=== PATIENT | female | born 1990 | race Hispanic/Latino ===

== ENCOUNTER → 2016-08-29 | Outpatient (REF) | payer OTHER | LOC: M LAB REF 17:02 | PROVIDERS: ATTEND Advanced Practice Midwife | DX: Z34.82 Encounter for supervision of other normal pregnancy, second trimester (principal) ==

== ENCOUNTER → 2016-09-27 | Outpatient (CLI) | payer OTHER ==
--- NOTE | 2016-09-27 15:05 | REP ---
Obstetric sonography: History: Supervision of for anatomy. Findings: Scanning through the gravid uterus demonstrates a viable single intrauterine gestation in a cephalic lie. motion is observed and heart rate is recorded at 144 beats per minute. An anterior grade 0 placenta is seen without evidence of previa or abruption. Amniotic fluid is subjectively normal. Closed cervical length is 5.3 cm. No extrauterine abnormality is observed. There has been appropriate interval growth since the prior study. spine is less than optimally seen. No anomaly is seen. The following anatomic structures are identified and felt to be sonographically unremarkable: cranium, choroid plexus, cavum, cerebellum and posterior fossa, face and profile, lungs, four-chamber heart with left and right ventricular outflow tract views, diaphragm, left-sided stomach, abdominal wall cord insertion, three-vessel umbilical cord, kidneys and bladder, upper and lower extremities. Biometry chart: BPD 4.5 cm = 19 weeks 4 days HC 16.6 cm = 19 weeks 2 days AC 15.8 cm = 21 weeks 0 days FL 3.0 cm = 19 weeks 2 days HL 3.0 cm = 19 weeks 6 days CD 1.9 cm = 18 weeks 3 days HC/AC ratio normal 1.05. Cephalic index normal 0.75. Estimated weight 330 grams, 0 pounds 11 ounces, 60th percentile for 19 weeks 5 days. Impression: Viable single intrauterine gestation at 19-week 6 days by today's composite sonographic criteria. Expected gestational age estimate based on prior sonography is 19 weeks 5 days. HERACLIO by prior sonography February 16, 2017. spine less than optimally seen. anatomic survey otherwise complete. Signed by Adam Ba MD 09/27/2016 04:34 P
== END ==
LOC: M RAD 09:37
PROVIDERS: ATTEND Advanced Practice Midwife
DX: Z34.82 Encounter for supervision of other normal pregnancy, second trimester (principal); Z3A.19 19 weeks gestation of pregnancy

== ENCOUNTER → 2016-10-30 | Outpatient (CLI) | payer OTHER ==
--- NOTE | 2016-10-31 06:52 | REP ---
Clinical: Anatomical evaluation. Comparison: 09/27/2016 . Findings: Examination demonstrates a single live intrauterine in breech presentation. motion is identified by technologist. Placenta is noted anteriorly and grade zero without evidence for placenta previa or abruption. Amniotic fluid volume is normal. Cervix appears closed. No evidence for nuchal cord. Gestational age by LMP 24 weeks 3 days with HERACLIO 02/16/2017 . Gestational age by current measurements 24 weeks 5 days with HERACLIO 02/14/2017 . FHR equals 140 beats per minute. Estimated weight 697 grams ( 45th percentile). Anatomical assessment demonstrates normal structures including cranium, choroid plexus, cavum, cerebellum/posterior fossa, facial features, lungs, ventricular outflow tracts, diaphragm, stomach, cord insertion/three-vessel cord, kidneys/bladder, and extremities. Impression: Single live intrauterine in breech presentation demonstrating appropriate interval growth. Incomplete evaluation of the spine again noted. Remainder of the anatomical assessment is complete and normal. Signed by Vitaliy Salomon MD 10/31/2016 06:44 A
== END ==
LOC: M RAD 11:49
PROVIDERS: ATTEND Advanced Practice Midwife
DX: Z34.82 Encounter for supervision of other normal pregnancy, second trimester (principal)

== ENCOUNTER → 2016-11-28 | Outpatient (CLI) | payer OTHER ==
[2016-11-28 14:06] LABS: BASO % 0.1 % (0.0-1.0); EOS # 0.1 K/mm3 (0.0-0.50); LARGE UNSTAINED CELL # 0.1 K/mm3 (0.0-0.4); LARGE UNSTAINED CELL % 1.3 % (0.0-4.0); LYMPH # 1.7 K/mm3 (1.5-6.5); LYMPH % 20.6 % (24.0-44.0); MEAN CORPUSCULAR HEMOGLOBIN 33.5 pg (27.0-33.0); MEAN CORPUSCULAR HGB CONC 33.9 g/dl (32.0-36.5); MEAN CORPUSCULAR VOLUME 98.8 fl (80.0-96.0); MONO # 0.4 K/mm3 (0.0-0.8); MONO % 5.1 % (0.0-5.0); NEUTROPHILS # 5.4 K/mm3 (1.8-7.7); NEUTROPHILS % 71.8 % (36.0-66.0); PLATELET COUNT, AUTOMATED 240 k/mm3 (150-450); RED CELL DISTRIBUTION WIDTH 12.9 % (11.5-14.5); WHITE BLOOD COUNT 7.5 K/mm3 (4.0-10.0)
== END ==
LOC: M SMT 08:50
PROVIDERS: ATTEND Advanced Practice Midwife
DX: Z34.83 Encounter for supervision of other normal pregnancy, third trimester (principal)

== ENCOUNTER → 2016-12-14 | Outpatient (CLI) | payer OTHER ==
--- NOTE | 2016-12-14 11:42 | REP ---
OB ULTRASOUND: Real-time sonographic evaluation of the gravid uterus is performed utilizing transabdominal technique. There is a single living intrauterine gestation with an estimated gestational age 30 weeks 6 days with EDC 02/16/2017. Today's measurements indicate appropriate growth. Biometry and Growth: BPD 77 mm = 31 weeks 0 days, 53rd percentile HC 288 mm = 31 weeks 4 days, 62nd percentile AC 271 mm = 31 weeks 1 day, 55th percentile FL 59 mm = 30 weeks 5 days, 47th percentile HC/AC ratio 1.06 within normal range. Estimated weight 1688 grams, 47th percentile. SEEN/GROSSLY UNREMARKABLE Lateral ventricles Yes Posterior fossa No Upper lip Yes Four-chamber heart Yes LVOT No RVOT No Stomach Yes Cord insertion Yes Three vessel cord Yes Kidneys Yes Bladder Yes Spine Yes Cervical length: The cervix is not well visualized. heart rate: 139 beats per minute. position: Vertex. Placenta: Anterior and grade 1 with no previa or abruption. Amniotic fluid: Within normal limits, KEEGAN 12.1 within normal range of 8.8 to 23.7. S/D ratio: 3.07 within normal range. RI: 0.67 within normal range. Signed by Mariano Sims MD 12/14/2016 04:38 P
== END ==
LOC: M RAD 10:10
PROVIDERS: ATTEND Advanced Practice Midwife
DX: Z36 Encounter for antenatal screening of mother (principal); Z3A.30 30 weeks gestation of pregnancy

== ENCOUNTER → 2017-01-16 | Outpatient (REF) | payer OTHER | LOC: M LAB REF 12:57 | PROVIDERS: ATTEND Specialist | DX: Z34.83 Encounter for supervision of other normal pregnancy, third trimester (principal) ==

== ENCOUNTER 2017-02-18 23:13 | Inpatient (IN) | payer OTHER ==
[~2017-02-18] VITALS: Ht 165.1 cm; Wt 95.0 kg
[2017-02-18 23:28] VITALS: BP 128/78
[2017-02-19] VITALS (30 sets, daily range): BP systolic 98–139; BP diastolic 56–85
[2017-02-19] MEDS ORDERED: LACTATED RINGER'S 1000 ML IV STA (01:53)
[2017-02-19] MEDS ORDERED: LR 1,000 ML IV SCH ×2 (01:53→07:33)
[2017-02-19] MEDS ORDERED: CLIN150C14 PO (02:06)
[2017-02-19 02:10] LABS: MEAN CORPUSCULAR HEMOGLOBIN 31.8 pg (27.0-33.0); MEAN CORPUSCULAR HGB CONC 32.6 g/dl (32.0-36.5); MEAN CORPUSCULAR VOLUME 97.6 fl (80.0-96.0); RED CELL DISTRIBUTION WIDTH 13.5 % (11.5-14.5); WHITE BLOOD COUNT 8.6 K/mm3 (4.0-10.0)
[2017-02-19] MEDS ORDERED: OXYTOCIN DRIP 30 UNITS in APPROPRIATE DILUENT 1 EA IV SCH ×2 (02:30→07:33)
[2017-02-19] MEDS ORDERED: fentaNYL 100 MCG/2 ML INJECTION (J3010) As Ordered ONE (02:50)
[2017-02-19] MEDS ORDERED: FENTANYL 2MCG/ML ROPIVACAINE 0.2% IN 0.9% NACL 200ML IVBAG As Ordered ONE (02:51)
[2017-02-19] MEDS ORDERED: FENTANYL/ROPIVACAINE/NACL BAG 200 ML EPIDURAL SCH (04:00)
[2017-02-19] MEDS ORDERED: ePHEDrine SULFATE 25 MG/5 ML(5MG/ML) SYRINGE IV PRN (04:00)
[2017-02-19] MEDS ORDERED: NALOXONE INJ 0.4 MG/1 ML VIAL (J2310) IV PRN (04:00)
[2017-02-19] MEDS ORDERED: EPIDURAL/PCA KEYS XX PRN (04:00)
[2017-02-19] MEDS ORDERED: ONDANSETRON 4MG/2ML VIAL (J2405) IV PRN ×2 (04:00→07:45)
[2017-02-19] MEDS ORDERED: REFRIGERATOR IV KEYS XX PRN (04:00)
[2017-02-19] MEDS ORDERED: EPIDURAL COMMENT XX SCH (04:00)
[2017-02-19] MEDS ORDERED: LACTATED RINGER'S 1000 ML IV PRN (04:00)
[2017-02-19] MEDS ORDERED: diphenhydrAMINE INJ 50MG/ML VIAL (J1200) IV PRN (04:00)
[2017-02-19] MEDS ORDERED: ACETAMINOPHEN 500 MG TAB PO PRN (07:45)
[2017-02-19] MEDS ORDERED: DIBUCAINE 1% OINTMENT 30GM TOP PRN (07:45)
[2017-02-19] MEDS ORDERED: DOCUSATE SODIUM 100 MG CAP PO PRN (07:45)
[2017-02-19] MEDS ORDERED: MEASLES,MUMPS,RUBELLA VACCINE INJ (MMR-II) (90707) SC SCH (07:45)
[2017-02-19] MEDS ORDERED: RHOGAM 300 MCG (1500 IU) INJ (J2790) IM SCH (07:45)
[2017-02-19] MEDS ORDERED: PROMETHAZINE 25 MG TAB PO PRN (07:45)
[2017-02-19] MEDS: PRENATAL VITAMINS CHEWABLE TABLET PO SCH (09:00)
[2017-02-19] MEDS: IBUPROFEN 800 MG TAB PO PRN (17:54)
[2017-02-20 05:50] VITALS: BP 150/68
[2017-02-20 06:32] VITALS: BP 116/72
[2017-02-20] MEDS: PRENATAL VITAMINS CHEWABLE TABLET PO SCH (08:04)
[2017-02-20] MEDS: IBUPROFEN 800 MG TAB PO PRN ×2 (09:56→21:01)
[2017-02-20 17:55] VITALS: BP 123/76
[2017-02-21 05:41] VITALS: BP 122/66
[2017-02-21] MEDS: PRENATAL VITAMINS CHEWABLE TABLET PO SCH (07:37)
[2017-02-21] MEDS ORDERED: ACET50TA PO (09:01)
[2017-02-21] MEDS ORDERED: PRENTAB9 PO (09:01)
[2017-02-21] MEDS ORDERED: IBUP-1114 PO (09:01)
== END 2017-02-21 10:40 | disposition home or self-care (01) | DRG 560 ==
LOC: M LDO 23:13 → M LDI 02-19 01:53 → M OBS 02-19 11:00
PROVIDERS: ADMIT Obstetrics & Gynecology; ATTEND Obstetrics & Gynecology
PROC: 10E0XZZ Delivery of Products of Conception, External Approach (ICD-10-PCS; principal; 2017-02-19)
PROC: 10907ZC Drainage of Amniotic Fluid, Therapeutic from Products of Conception, Via Natural or Artificial Opening (ICD-10-PCS; 2017-02-19)
DX: O48.0 Post-term pregnancy (principal); O69.2XX0 Labor and delivery complicated by other cord entanglement, with compression, not applicable or unspecified; Z37.0 Single live birth; Z3A.40 40 weeks gestation of pregnancy

== ENCOUNTER → 2020-04-18 | Outpatient (CLI) | payer OTHER ==
[~2020-04-18] MED LIST: CLIN150C14 PO; IBUP-1114 PO; MAPA500T2 PO; PRENTAB9 PO
[2020-04-18 15:55] LABS: BASO % 0.2 % (0.0-1.0); EOS % 0.3 % (0.0-3.0); HEMATOCRIT 40.3 % (36.0-47.0); HEMOGLOBIN 13.8 g/dl (12.0-15.5); LYMPH # 2.4 10^3/uL (1.5-5.0); LYMPH % 25.3 % (24.0-44.0); MEAN CORPUSCULAR HEMOGLOBIN 32.6 pg (27.0-33.0); MEAN CORPUSCULAR HGB CONC 34.2 g/dl (32.0-36.5); MEAN CORPUSCULAR VOLUME 95.3 fl (80.0-96.0); MONO # 0.6 10^3/uL (0.0-0.8); MONO % 6.9 % (0.0-5.0); NEUTROPHILS # 6.2 10^3/uL (1.5-8.5); NEUTROPHILS % 66.9 % (36.0-66.0); PLATELET COUNT, AUTOMATED 298 10^3/uL (150-450); RED BLOOD COUNT 4.23 10^6/uL (4.00-5.40); WHITE BLOOD COUNT 9.3 10^3/uL (4.0-10.0)
[2020-04-18 16:41] LABS: HEPATITIS C VIRUS ABY INDEX 0.3 INDEX (<0.8); HIV 1&2 SCREEN CENTAUR NEGATIVE (NEGATIVE)
[2020-04-18 17:59] LABS: CHLAMYDIA DNA AMPLIFICATION NEGATIVE (NEGATIVE); GC DNA AMPLIFICATION NEGATIVE (NEGATIVE)
== END ==
LOC: M PLALAB 12:03
PROVIDERS: ATTEND Advanced Practice Midwife
DX: Z34.81 Encounter for supervision of other normal pregnancy, first trimester (principal); Z3A.00 Weeks of gestation of pregnancy not specified

== ENCOUNTER → 2020-06-13 | Outpatient (CLI) | payer OTHER ==
--- NOTE | 2020-06-13 14:34 | REP ---
INDICATION: ANATOMY. Supervision of COMPARISON: None. TECHNIQUE: Transabdominal scanning. FINDINGS: Scanning through the gravid uterus demonstrates a viable single intrauterine gestation in transverse, head to the maternal right lie. motion is observed and heart rate is recorded at 134 beats per minute. A anterior placenta is seen, grade 0, without evidence of placenta previa. Amniotic fluid is subjectively normal. Closed cervical length is measured at 3.3 cm transabdominally. No extrauterine abnormality is observed. nose and lips, kidneys, and spine are less than optimally seen due to position.. The following anatomic structures are identified felt to be unremarkable: cranium, cavum septum pellucidum, falx, cerebral ventricles, choroid plexus and cerebellum, four-chamber heart with left and right ventricular outflow tract views, diaphragm, left-sided stomach, urinary bladder, upper and lower extremities, three-vessel cord. Biometry chart: BPD 4.4 cm, 19 weeks 2 days Head circumference 16.7 cm, 19 weeks 2 days Abdominal circumference 13.9 cm, 19 weeks 2 days Femur length 3.0 cm, 19 weeks 2 days Humeral length 2.9 cm, 19 weeks 3 days HC AC ratio normal 1.20 Cephalic index normal 0.72 Estimated weight 285 g, 0 lb 10 oz, 40th percentile for 19 weeks 3 days IMPRESSION: Viable single intrauterine gestation at 19 weeks 2 days by today's composite sonographic criteria. HERACLIO by today's sonography November 05, 2020. No complication identified. anatomic survey is less than complete regarding visualization of spine, kidneys, nose and lips. <Electronically signed by Felipe Ba > 06/13/20 [id number]
== END ==
LOC: M WHC 09:28
PROVIDERS: ATTEND Advanced Practice Midwife
DX: Z36.3 Encounter for antenatal screening for malformations (principal); Z3A.19 19 weeks gestation of pregnancy

== ENCOUNTER → 2020-06-22 | Outpatient (CLI) | payer OTHER ==
--- NOTE | 2020-06-22 12:01 | REP ---
INDICATION: F/U ANATOMY- SPINE/KIDNEYS/NOSE/LIPS. COMPARISON: 06/13/2020 TECHNIQUE: Real-time sonographic evaluation of the gravid uterus performed. FINDINGS: Estimated gestational age is20 weeks 5 days, EDC 11/04/2020. Today's measurements indicate appropriate growth. Presentation: Cephalic Placenta anterior, grade 1, without evidence of placenta previa. heart rate is recorded at 142 beats per minute. Amniotic fluid is subjectively normal. Closed cervical length is measured at 3.3 cm. Biometry chart: BPD: 50 mm, 21 weeks 0 days, 57th percentile. HC: 187 mm, 21 weeks 0 days, 60th percentile AC: 156 mm, 20 weeks 5 days, 51st percentile Femur length: 35 mm, 20 weeks 6 days, 55th percentile HC to AC ratio: 1.20, normal range 1.06-1.24. Estimated weight: 381g, 53rd percentile. anatomy: Cranium: Grossly normal Nose/lips/profile: Grossly normal Four chamber heart: Grossly normal Right ventricular outflow tract: Grossly normal Left ventricular outflow tract: Grossly normal Left-sided stomach: Grossly normal Kidneys: Grossly normal Bladder: Grossly normal Cord Insertion: Grossly normal 3 vessel cord: Grossly normal Spine: Grossly normal IMPRESSION: Viable single intrauterine gestation as above. <Electronically signed by Mariano Sims > 06/22/20 [id number]
== END ==
LOC: M WHC 08:56
PROVIDERS: ATTEND Specialist
DX: Z34.82 Encounter for supervision of other normal pregnancy, second trimester (principal)

== ENCOUNTER → 2020-08-10 | Outpatient (REF) | payer OTHER ==
[2020-08-10 13:44] LABS: HEMATOCRIT 37.9 % (36.0-47.0); HEMOGLOBIN 12.4 g/dl (12.0-15.5); MEAN CORPUSCULAR HEMOGLOBIN 31.7 pg (27.0-33.0); MEAN CORPUSCULAR HGB CONC 32.7 g/dl (32.0-36.5); MEAN CORPUSCULAR VOLUME 96.9 fl (80.0-96.0); PLATELET COUNT, AUTOMATED 272 10^3/uL (150-450); RED BLOOD COUNT 3.91 10^6/uL (4.00-5.40); WHITE BLOOD COUNT 9.2 10^3/uL (4.0-10.0)
== END ==
LOC: M PLALAB 11:14
PROVIDERS: ATTEND Obstetrics & Gynecology
DX: Z34.82 Encounter for supervision of other normal pregnancy, second trimester (principal)

== ENCOUNTER → 2020-10-12 | Outpatient (REF) | payer OTHER ==
[~2020-10-12] MED LIST changes: -CLIN150C14 PO; +CLIN150C15 PO
== END ==
LOC: M SFHCWAGY 12:54
PROVIDERS: ATTEND Advanced Practice Midwife
DX: Z34.93 Encounter for supervision of normal pregnancy, unspecified, third trimester (principal); Z3A.36 36 weeks gestation of pregnancy

== ENCOUNTER 2020-11-04 15:40 | Inpatient (IN) | payer OTHER ==
[~2020-11-04] VITALS: Ht 165.1 cm; Wt 107.7 kg
[2020-11-04] VITALS (20 sets, daily range): BP systolic 84–161; BP diastolic 50–80
[2020-11-04] MEDS ORDERED: TUMS500C PO (15:55)
[2020-11-04] MEDS ORDERED: LACTATED RINGER'S 1000 ML IV STA (16:05)
[2020-11-04] MEDS ORDERED: LR 1,000 ML IV SCH (16:05)
--- NOTE | 2020-11-04 16:22 | HPEPDOC ---
Obstetrical History & Physical General Date of Admission Nov 04, 2020 at 16:04 Primary Care Physician: CATIE REYES CNM History of Present Illness Josselyn is a 30-year-old female who is a at 40 weeks gestation with HERACLIO of 11/04/20 based off of her LMP and consistent with her first trimester ultrasound. Her has been uncomplicated. 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 She reports some bloody show and active movement. She denies leaking of fluid. Chief Complaint: Contractions, term Information Provided By: Patient Age: 30 : 3 Term: 2 Pre-term: 0 Abortions: 0 Livin Care Care: Good Care Dating Final EDC: Nov 04, 2020 Final EDC by: LMP EGA at Admission: 40 Antepartum Course Height (inches): 65 Admission Weight (lbs.): 235 Past Medical History Past Obstetrical History #1: Past Obstetrical History: Primgravida Date of Delivery: Jul 31, 2007 Gestation: 40 Type of Delivery: Spontaneous Vaginal Del. Sex of Infant: Male (6 lbs 11 oz) Complications: No Past Obstetrical History #2: Past Obstetrical History: Multigravida Date of Delivery: Feb 19, 2017 Gestation: 40.3 Type of Delivery: Spontaneous Vaginal Del. Sex of : Male (7 lbs 6 oz) Complications: No DISCOVERY MANAGER History: No pertinent history Past Medical History Medical History overweight Surgical History: Denies/None Family History Significant Family History: No pertinent family hx Social History Marital Status: Single Family situation: Spouse/partner home Psychosocial History: No pertinent psych hx * Smoker: former Smoker Alcohol: Denies Drugs: denies Abuse Violence Screening Have you been hit/kicked/slapp: No Have you been sexually assault: No Allergies Coded Allergies: No Known Allergies (Unverified , 02/19/17) Medications Scheduled Calcium Carbonate (Tums) 200 Mg Tab.chew, 2 TAB PO PRN Physical Examination Physical Examination GENERAL: Alert and oriented times three. ABDOMEN: Gravid and non-tender to touch. FETUS: Is vertex (VTX) by sterile vaginal examination (SVE), fetus is vertex (VTX) by Mariano. LUNGS: Clear to auscultation (CTA). EXTREMITIES: Generalized edema. No clonus. Deep tendon reflexes (DTRs) + 2. Vital Signs/I&O Vital Signs Label Value Date Time Patient Temperature 98.1 degrees F 11/04/20 1558 Temperature Source Temporal 11/04/20 1558 Pulse 122 11/04/20 1558 Respiratory Rate 18 bpm 11/04/20 1558 Blood Pressure Assessment 125/76 (92) 11/04/20 1558 Source Automatic Cuff (NIBP) Pertinent Laboratoy Data Blood Type: O+ RBC Antibody Screen: Negative HIV: Negative Hepatitis B: Negative Hepatitis C: Negative Rapid Plasma Reagin: Nonreactive Rubella: Immune Chlamydia/Gonorrhea: Negative Group B Streptococcus: Negative Glucose Tolerance Test: 108 Vaginal Examination Dilation: 5 cm Effacement: 80% Station: -1 Cervical Consistency: Soft Cervical Position: Anterior Position: Vertex (occiput) Assessment Heart Rate (FHR): 130 Variability: Moderate Accelerations: Positive Decelerations: Early Tocometer Contractions: Yes Frequency: regular Multi-drug resistant Organism: No history of MDRO Assessment/Plan Assessment IUP at 40 weeks gestation active labor at term Category I FHR tracing GBS negative Plan Admit to L&D. OOB ad maria luisa. Diet: clears. Group B Streptococcus (GBS) negative. Labs and intravenous (IV) per unit protocol. Anesthesia consult per patient's request. Lactated Ringers (LR): Bolus 800 mL, then at 125 mL/hr. Anticipate normal spontaneous delivery (). C-S as appropriate. CATIE REYES CNM Nov 04, 2020 16:22
[2020-11-04 16:40] LABS: HEMATOCRIT 40.1 % (36.0-47.0); HEMOGLOBIN 13.6 g/dl (12.0-15.5); MEAN CORPUSCULAR HEMOGLOBIN 31.6 pg (27.0-33.0); MEAN CORPUSCULAR HGB CONC 33.9 g/dl (32.0-36.5); PLATELET COUNT, AUTOMATED 247 10^3/uL (150-450); RED BLOOD COUNT 4.31 10^6/uL (4.00-5.40); WHITE BLOOD COUNT 10.3 10^3/uL (4.0-10.0)
[2020-11-04] MEDS ORDERED: FENTANYL 2MCG/ML ROPIVACAINE 0.2% IN 0.9% NACL 100ML IVBAG As Ordered ONE (17:22)
[2020-11-04] MEDS ORDERED: EPIDURAL/PCA KEYS XX PRN (18:00)
[2020-11-04] MEDS ORDERED: ONDANSETRON 4MG/2ML VIAL IV PRN (18:00)
[2020-11-04] MEDS ORDERED: REFRIGERATOR IV KEYS XX PRN (18:00)
[2020-11-04] MEDS ORDERED: EPIDURAL COMMENT XX SCH (18:00)
[2020-11-04] MEDS ORDERED: ePHEDrine SULFATE 25 MG/5 ML(5MG/ML) SYRINGE IV PRN (18:00)
[2020-11-04] MEDS ORDERED: NALOXONE INJ 0.4MG/1ML VIAL (J2310 PER 1MG) IV PRN (18:00)
[2020-11-04] MEDS ORDERED: diphenhydrAMINE 50MG/ML VIAL (J1200) IV PRN (18:00)
[2020-11-04] MEDS ORDERED: FENTANYL/ROPIVACAINE/NACL BAG 100 ML EPIDURAL SCH (18:00)
[2020-11-04] MEDS ORDERED: LACTATED RINGER'S 1000 ML IV PRN (18:00)
[2020-11-04] MEDS ORDERED: OXYTOCIN DRIP 30 UNITS in IV 1 EA IV SCH (19:20)
--- NOTE | 2020-11-04 22:01 | IPNPDOC ---
Obstetrical Progress Note Date of Service Nov 04, 2020 Subjective Comfortable with epidural. Feeling intermittent pressure. Objective Vital Signs Date Time Temp Pulse Resp B/P (MAP) Pulse Ox O2 Delivery O2 Flow Rate FiO2 11/04/20 18:38 122 110/57 (74) 11/04/20 15:58 98.1 18 Assessment Heart Rate (FHR): 130 Variability: Minimal to moderate Accelerations: None Decelerations: Early Tocometer Contractions: Yes Frequency: regular Sterile Vaginal Examination Dilation: 8 cm Effacement (%): 90% Station: -1 Cervical Consistency: Soft Cervical Position: Anterior Postion/Presentation: Cephalic presentation Assessment and Plan Status: Reassuring Group B Streptococcus: Negative Anticipate: Vaginal Delivery Additional Comments IV Pitocin 4 mu/min. Moderate amount of bloody show. CATIE REYES CNM Nov 04, 2020 22:01
[2020-11-05] VITALS (10 sets, daily range): BP systolic 105–198; BP diastolic 56–157
[2020-11-05] MEDS ORDERED: DOCUSATE SODIUM 100MG CAPSULE PO PRN (00:05)
[2020-11-05] MEDS ORDERED: METHYLERGONOVINE MALEATE 0.2 MG TAB PO PRN (00:05)
[2020-11-05] MEDS ORDERED: ACETAMINOPHEN 500 MG TAB PO PRN (00:05)
[2020-11-05] MEDS ORDERED: OXYTOCIN DRIP 30 UNITS in IV 1 EA IV SCH (00:05)
[2020-11-05] MEDS ORDERED: ANUSOL HC CREAM 30GM TOP PRN (00:05)
[2020-11-05] MEDS ORDERED: IBUPROFEN 600MG TAB PO PRN (00:05)
[2020-11-05] MEDS ORDERED: ACETAMINOPHEN TAB 650MG DOSE (2X325MG) PO PRN (00:05)
[2020-11-05] MEDS ORDERED: MEASLES,MUMPS,RUBELLA VACCINE INJ (MMR-II) (90707) SC SCH (00:05)
[2020-11-05] MEDS ORDERED: DIBUCAINE 1% OINTMENT 30GM TOP PRN (00:05)
[2020-11-05] MEDS ORDERED: RHOGAM 300 MCG (1500 IU) INJ (J2790) IM SCH (00:05)
--- NOTE | 2020-11-05 00:20 | DNPDOC ---
[facility] Delivery Note Delivery Note DATE OF DELIVERY: 11/04/20 at 2349 PREDELIVERY DIAGNOSIS: 40-0/7 weeks' gestation and labor. POST DELIVERY DIAGNOSIS: Delivered. PROCEDURE: Spontaneous vaginal delivery. MATERIAL EXPEDITER: Catie Bae CNM, WHNP ANESTHESIA: epidural. ESTIMATED BLOOD LOSS: 150 mL. FINDINGS: 8 pounds 2 ounces; 3680 grams; male , Score 9/9, meconium. DELIVERY SUMMARY: Josselyn is a 30-year-old female who is now a who presented to L&D in active labor. She requested an epidural for pain management. The patient progressed to fully dilated at 2328 and pushed to a living male in the FOUZIA position with restitution to LOT. The anterior shoulder delivered with ease and the corpus immediately followed. The baby was placed on the maternal abdomen active and crying with stimulation. The cord was clamped x2 and after pulsation ceased and cut by the FOB. The placenta delivered spontaneously and intact at 2352. Uterine hemostasis was achieved via rapid infusion of IV Pitocin and fundal massage. The vagina, perineum and cervix was inspected and found to be intact. Mom is planning to bottle feed and formula feed. They plan on naming him Martell. Both mom and baby are in stable condition. All counts of instruments and sponges are correct. CATIE BAE CNM Nov 05, 2020 00:20
[2020-11-05] MEDS: PRENATAL VITAMINS CHEWABLE TABLET PO SCH (08:16)
[2020-11-05] MEDS: IBUPROFEN 800 MG TAB PO PRN (08:16)
--- NOTE | 2020-11-05 08:21 | IPNPDOC ---
Progress Note Date of Service: Nov 05, 2020 Day#: 1 Progress Note SUBJECT: Josselyn is a 30-year-old now who presented to L&D in active labor. She had an uncomplicated vaginal delivery. She has been ambulating, voiding spontaneously without issue and tolerating regular diet. She is breast and formula feeding without issues. OBJECTIVE: VITAL SIGNS: Within normal limits, afebrile. Alert and oriented times three. Breath sounds clear to auscultation. No use of accessory muscles. Abdomen: Fundus firm at U. Soft, NTTP. Minimal lochia. ASSESSMENT: day 1 PLAN: 1. Continue supportive nursing care. 2. Anticipate discharge to home tomorrow. VS, I&O, 24H, Fishbone Vital Signs/I&O Vital Signs Date Time Temp Pulse Resp B/P (MAP) Pulse Ox O2 Delivery O2 Flow Rate FiO2 11/05/20 06:00 97.6 80 18 119/56 (77) I&O- Last 24 Hours up to 6 AM 11/05/20 06:00 Intake Total 3148 ml Output Total 1450 ml Balance 1698 ml Laboratory Data 24H LABS Laboratory Tests 2 11/04/20 16:09: Serology Scanned Report Hepatitis B Testing 11/04/20 16:31: Nucleated Red Blood Cells % (auto) 0.0, Syphilis Serology NONREACTIVE CBC/BMP Laboratory Tests 11/04/20 16:31 CATIE REYES CNM Nov 05, 2020 08:21
[2020-11-06 06:23] VITALS: BP 123/64
[2020-11-06] MEDS: PRENATAL VITAMINS CHEWABLE TABLET PO SCH (08:07)
[2020-11-06] MEDS: IBUPROFEN 800 MG TAB PO PRN (12:01)
== END 2020-11-06 12:25 | disposition home or self-care (01) | DRG 560 ==
LOC: M LDO 15:40 → M LDI 16:04 → M OBS 11-05 02:00
PROVIDERS: ADMIT Advanced Practice Midwife; ATTEND Advanced Practice Midwife
PROC: 10E0XZZ Delivery of Products of Conception, External Approach (ICD-10-PCS; principal; 2020-11-04)
DX: O80 Encounter for full-term uncomplicated delivery (principal); Z37.0 Single live birth; Z3A.40 40 weeks gestation of pregnancy

== ENCOUNTER → 2021-01-25 | Outpatient (REF) | payer OTHER ==
[~2021-01-25] MED LIST changes: +TUMS500C PO
== END ==
LOC: M SFHCWAGY 12:48
PROVIDERS: ATTEND Advanced Practice Midwife
DX: Z12.4 Encounter for screening for malignant neoplasm of cervix (principal); Z77.9 Other contact with and (suspected) exposures hazardous to health